=== PATIENT | female | born 1955 | race Caucasian/White ===

== ENCOUNTER 2019-03-11 19:02 | Emergency (ER) | payer OTHER ==
[~2019-03-11] VITALS: Ht 177.8 cm; Wt 115.7 kg
[~2019-03-11 19:02] MED LIST: ADULT LOW DOSE81 MG; ADULT LOW DOSE81 MG PO; CLARITIN10 MG PO; CLONIDINE0.1 PO; NORCO 5-325 TA1 EACH PO; NORFLEX100 MG PO; PENICILLIN VK500 M1 PO; PREDNISONE 20 M20 MG PO
[2019-03-11] MEDS ORDERED: DOXYCYCLINE 10100 MG PO (21:14)
[2019-03-11 21:21] VITALS: BP 159/93
== END 2019-03-11 21:21 | disposition home or self-care (01) ==
LOC: ER 19:02
DX: L03.116 Cellulitis of left lower limb (principal); S70.362A Insect bite (nonvenomous), left thigh, initial encounter; I10 Essential (primary) hypertension; F17.210 Nicotine dependence, cigarettes, uncomplicated; W57.XXXA Bitten or stung by nonvenomous insect and other nonvenomous arthropods, initial encounter; Y93.89 Activity, other specified; Y92.89 Other specified places as the place of occurrence of the external cause; Y99.8 Other external cause status